=== PATIENT | male | born 1985 | race Two or more races ===

== ENCOUNTER 2024-09-20 23:42 | Emergency (ER) | payer BC ==
[~2024-09-20] VITALS: Ht 182.9 cm; Wt 65.8 kg
[2024-09-21 00:29] LABS: PLATELET COUNT (AUTO) 251 K/uL (150-450); RED BLOOD CELL COUNT(AUTO) 4.58 MIL/uL (4.5-6.0); RED CELL DISTRIBUTION WIDTH 14.2 % (11.5-15.0); WHITE BLOOD COUNT (AUTO) 6.3 K/uL (4.3-11.0)
[2024-09-21 00:40] LABS: CALCIUM, SERUM 8.4 mg/dL (8.5-10.1); CREATININE 1.1 mg/dL (0.6-1.3); SODIUM SERUM 139 mmol/L (136-145); UREA NITROGEN, BLOOD 10 mg/dL (7-18)
[2024-09-21 00:45] LABS: APPEARANCE,URINE CLEAR (CLEAR); BLOOD, URINE NEGATIVE Ery/uL (NEGATIVE); LEUKOCYTE ESTERASE ,URINE 1+ (NEGATIVE); NITRITE, URINE NEGATIVE (NEGATIVE); UGLUCOSE NEGATIVE (NEGATIVE)
[2024-09-21 00:49] LABS: ADD URINE CULTURE YES; SQUAMOUS EPITHELIAL CELL,UR Few /HPF (None Seen)
[2024-09-21 00:49] LABS: ALCOHOL, BLOOD < 3 mg/dL (0-10); ASPARTATE AMINOTRANSFERASE 12 U/L (15-37); TOTAL PROTEIN, SERUM 7.1 g/dL (6.4-8.2)
[2024-09-21 00:50] LABS: NT-PRO BNP 9 pg/mL (0-125)
[2024-09-21 00:56] LABS: AMPHETAMINE, URINE NEGATIVE (NEGATIVE); BARBITURATE, URINE NEGATIVE (NEGATIVE); BENZODIAZEPINE, URINE NEGATIVE (NEGATIVE); CANNABINOID, URINE NEGATIVE (NEGATIVE); COCCAINE, URINE NEGATIVE (NEGATIVE); OPIATE, URINE NEGATIVE (NEGATIVE)
[2024-09-21 01:31] VITALS: TEMP 98.5
[2024-09-21] MEDS ORDERED: KETO10TA2 PO (02:49)
[2024-09-21] MEDS ORDERED: HYDROCODONE/APAP 10/325MG TABLET ONE (02:51)
[2024-09-21] MEDS: HYDROCODONE/APAP 10/325MG TABLET PO ONE (02:55)
[2024-09-21 02:56] VITALS: BP 98/65; O2SAT 95
== END 2024-09-21 02:56 | disposition home or self-care (01) ==
LOC: ER 23:54
DX: R07.89 Other chest pain (principal); Z79.899 Other long term (current) drug therapy
CPT/HCPCS: 36415; 71045-TC; 80053-TC; 81001; 83880; 84484-TC; 85025-TC; 85378-TC; 87086-TC; 87186-TC; G0480

== ENCOUNTER 2025-02-14 16:37 | Emergency (ER) | payer BC ==
[~2025-02-14] VITALS: Ht 185.4 cm; Wt 89.8 kg
[~2025-02-14 16:37] MED LIST: KETO10TA2 PO
--- NOTE | 2025-02-14 16:45 | NUR ---
"Pain in chest last couple days today more constant. Sharp"
[2025-02-14] MEDS ORDERED: IBUPROFEN 600 MG TABLET ONE (17:02)
[2025-02-14] MEDS: IBUPROFEN 600 MG TABLET PO ONE (17:13)
[2025-02-14 17:22] LABS: PLATELET COUNT (AUTO) 246 K/uL (150-450); RED BLOOD CELL COUNT(AUTO) 4.61 MIL/uL (4.5-6.0); RED CELL DISTRIBUTION WIDTH 14.3 % (11.5-15.0); WHITE BLOOD COUNT (AUTO) 6.8 K/uL (4.3-11.0)
--- NOTE | 2025-02-14 17:22 | NUR ---
BLOOD AND URINE GIVEN TO LAB
--- NOTE | 2025-02-14 17:23 | NUR ---
MONITOR APPLIED, WARM BLANKET PROVIDED
[2025-02-14 17:38] LABS: CALCIUM, SERUM 8.8 mg/dL (8.5-10.1); CREATININE 1.1 mg/dL (0.6-1.3); SODIUM SERUM 142 mmol/L (136-145); UREA NITROGEN, BLOOD 14 mg/dL (7-18)
[2025-02-14 17:51] LABS: APPEARANCE,URINE CLEAR (CLEAR); BLOOD, URINE NEGATIVE Ery/uL (NEGATIVE); LEUKOCYTE ESTERASE ,URINE TRACE (NEGATIVE); NITRITE, URINE NEGATIVE (NEGATIVE); UGLUCOSE NEGATIVE (NEGATIVE)
[2025-02-14 17:55] LABS: ADD URINE CULTURE YES; SQUAMOUS EPITHELIAL CELL,UR 0-2 /HPF (None Seen); URINE AMORPHOUS PHOSPHATES Many /HPF (None Seen)
[2025-02-14] MEDS ORDERED: IBUP-1953 PO (19:46)
[2025-02-14] MEDS ORDERED: NITR100C6 PO (19:46)
--- NOTE | 2025-02-14 19:56 | NUR ---
iv cannula removed. Patient discharged to home in stable condition. Written and verbal after care instructions given. Patient verbalizes understanding of instruction.
[2025-02-14 20:00] VITALS: BP 103/64; TEMP 98.7; O2SAT 97
== END 2025-02-14 20:00 | disposition home or self-care (01) ==
LOC: ER 16:42
DX: N39.0 Urinary tract infection, site not specified (principal); R07.89 Other chest pain; Z91.048 Other nonmedicinal substance allergy status
CPT/HCPCS: 36415; 71045-TC; 80048-TC; 81001; 84484-TC; 85025-TC; 87086-TC